=== PATIENT | male | born 1990 | race Caucasian/White ===

== ENCOUNTER → 2018-02-09 | Outpatient (CLI) | payer OTHER ==
[~2018-02-09] MED LIST: GADOBUTROL 10 MMOL/10 ML (GADAVIST) VIAL IV ONE
--- NOTE | 2018-02-09 13:10 | Diagnostic Imaging Report ---
INDICATION: Hypogonadism with extreme fatigue and gynecomastia. TECHNIQUE: Pre and post intravenous contrast multiplanar, multisequence imaging of the brain with thin-slice imaging of the sella turcica was performed. COMPARISON: No prior studies are available for comparison. FINDINGS: The ventricles and sulci are within normal limits. No sulcal effacement, midline shift, or hemorrhage is detected. There is no diffusion restriction. Normal expected flow voids within the carotid siphons are seen. No acute intracranial hemorrhage is detected. The corpus callosum is unremarkable. Thin-slice imaging through the sella turcica demonstrates the pituitary gland to be normal in size. No sellar or suprasellar mass is detected. The infundibulum is midline. Superior margin of the pituitary gland is unremarkable. 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 No other area of abnormal enhancement is seen. IMPRESSION: Essentially unremarkable pre and post contrast MRI of the brain and pituitary. Dictated by: Dictated on workstation # [id number]
== END ==
LOC: RAD 11:34
PROVIDERS: ATTEND Urology
DX: E23.0 Hypopituitarism (principal); N62 Hypertrophy of breast; R53.83 Other fatigue
CPT/HCPCS: 70553